=== PATIENT | female | born 1995 | race African-American/Black ===

== ENCOUNTER 2024-12-10 13:45 | Emergency (ER) | payer MEDICAID ==
[~2024-12-10] VITALS: Ht 160 cm; Wt 52.0 kg
[2024-12-10 13:53] VITALS: O2SAT 100
[2024-12-10 14:15] VITALS: BP 105/43; PULSE 76; RESP 16; TEMP 36.7; O2SAT 100
[2024-12-10] MEDS ORDERED: DOXY100C5 MT (17:12)
[2024-12-10] MEDS ORDERED: CEFTRIAXONE SODIUM 500MG VIAL IM ONE (17:15)
== END 2024-12-10 16:41 | disposition home or self-care (01) ==
LOC: ER 13:45
DX: Z20.2 Contact with and (suspected) exposure to infections with a predominantly sexual mode of transmission (principal)
CPT/HCPCS: 81025; 87491; 87591; 99283